=== PATIENT | male | born 1980 ===

== ENCOUNTER 2018-04-24 08:22 | Observation (INO) | payer OTHER ==
[2018-04-24 08:22] VITALS: BMI 35.4
[2018-04-24] MEDS ORDERED: Sodium Chloride 0.9% 1,000 ML IV ONE ×3 (08:38→15:34)
--- NOTE | 2018-04-24 09:13 | C.PDOC ---
History Of Present Illness 38 y/o male presents to the ER complaining of vomiting and diarrhea which has been present since yesterday. Patient states that he has cramping abdominal pain with diarrhea. Patient also notes that he has fever since yesterday. Denies having CP,SOB, and urinary symptoms. Time Seen by Provider: 04/24/18 08:24 Chief Complaint (Nursing): GI Problem History Per: Patient History/Exam Limitations: no limitations Onset/Duration Of Symptoms: Days Current Symptoms Are (Timing): Still Present Severity: Moderate Quality Of Discomfort: Cramping Recent travel outside of the [place]: No Past Medical History Reviewed: Historical Data, Nursing Documentation, Vital Signs Vital Signs: Last Vital Signs Temp 99.1 F 04/24/18 08:34 Pulse 110 H 04/24/18 08:34 Resp 20 04/24/18 08:39 BP 122/77 04/24/18 08:34 Pulse Ox 98 04/24/18 08:34 - Medical History PMH: No Chronic Diseases Surgical History: No Surg Hx Family History: States: No Known Family Hx - Social History Hx Alcohol Use: Yes Hx Substance Use: No - Immunization History Hx Tetanus Toxoid Vaccination: No Hx Influenza Vaccination: No Hx Pneumococcal Vaccination: No Review Of Systems Except As Marked, All Systems Reviewed And Found Negative. Constitutional: Positive for: Fever. Negative for: Chills Cardiovascular: Negative for: Chest Pain Respiratory: Negative for: Shortness of Breath Gastrointestinal: Positive for: Vomiting, Abdominal Pain, Diarrhea Genitourinary: Negative for: Dysuria, Hematuria Physical Exam - Physical Exam Appears: Non-toxic, No Acute Distress Skin: Normal Color, Warm, Dry Head: Atraumatic, Normacephalic Eye(s): bilateral: Normal Inspection Nose: Normal Oral Mucosa: Moist Throat: Normal, No Erythema, No Exudate Neck: Supple Chest: Symmetrical Cardiovascular: Rhythm Regular Respiratory: Normal Breath Sounds, No Rales, No Rhonchi, No Wheezing Gastrointestinal/Abdominal: Normal Exam, Soft, No Tenderness, No Guarding, No Rebound Extremity: Normal ROM Neurological/Psych: Oriented x3, Normal Speech Gait: Steady ED Course And Treatment - Laboratory Results Result Diagrams: 04/24/18 12:41 04/24/18 09:34 Lab Interpretation: No Acute Changes O2 Sat by Pulse Oximetry: 98 (RA) Pulse Ox Interpretation: Normal - Radiology CXR: Interpreted by Me CXR Interpretation: Yes: No Acute Disease - Other Rad CXR X-Ray: Viewed By Me, Read By Radiologist Interpretation: Accession No. : [id number]. Patient Name / ID : TADEO PURVIS / [id number]. Exam Date : 04/24/2018 13:39:50 ( Approved ). Study Comment : Sex / Age : M / 38Y. Creator : Bianka Thomas MD. Dictator : Bianka Thomas MD. Press Bucker : Venetian Blind Washer : Bianka Thomas MD. Approver2 : Report Date : 04/24/2018 14:20:35. My Comment : . Date of service: 04/24/2018. HISTORY: Cough. COMPARISON: 10/29/2017. TECHNIQUE: Chest PA and lateral. FINDINGS: LINES AND TUBES: None. LUNG AND PLEURA: The lungs are well inflated and clear. No pleural effusion or pneumothorax. HEART AND MEDIASTINUM: The heart is not enlarged. No aortic atherosclerotic calcifications present. The hilar and mediastinal contours are within normal limits. SKELETAL STRUCTURES: The bony structures are within normal limits for the patient's age. VISUALIZED UPPER ABDOMEN: Normal. OTHER FINDINGS: None. IMPRESSION: No active pulmonary disease. - CT Scan/US CT-Abd & Pelv. Other Rad Studies (CT/US): Read By Radiologist, Radiology Report Reviewed CT/US Interpretation: PROCEDURE: CT Abdomen and Pelvis without Oral or IV contrast. HISTORY: Pain. COMPARISON: None available. TECHNIQUE: Contiguous axial images of the abdomen and pelvis. No oral or IV contrast administered. Coronal and Sagittal reformats generated and reviewed. Radiation dose: Total exam DLP = 1194.31 mGy-cm. This CT exam was performed using one or more of the following dose reduction techniques: Automated exposure control, adjustment of the mA and/or kV according to patient size, and/or use of iterative reconstruction technique. FINDINGS: There is limited evaluation of the solid organs without the administration of IV contrast. LOWER THORAX: No visible consolidation, pleural effusion, or pneumothorax. Small hiatal hernia/distal esophageal wall thickening. LIVER: Hepatomegaly. Hypoattenuation of the liver compatible with hepatic steatosis. GALLBLADDER AND BILE DUCTS: Contracted state of gallbladder appears otherwise unremarkable. PANCREAS: Unremarkable unenhanced appearance. SPLEEN: Unremarkable unenhanced appearance. ADRENALS: Unremarkable unenhanced appearance. KIDNEYS AND URETERS: No hydronephrosis or obstructing renal calculus. BLADDER: The urinary bladder appears unremarkable. REPRODUCTIVE: The prostate gland measures approximately 3.5 x 4.7 cm. APPENDIX: The appendix appears within normal limits of caliber. No secondary signs of acute appendicitis. BOWEL: The stomach is nondistended. Lack of oral contrast limits evaluation for bowel pathology. The bowel loops appear within normal limits of caliber without evidence of intestinal obstruction. Small scattered bowel hyperdensities which may be due to ingested contrast from prior recent outside imaging; correlate clinically. PERITONEUM: No significant free fluid. No definite free air. LYMPH NODES: Extensive sub cm mesenteric and retroperitoneal lymph nodes, nonspecific.. VASCULATURE: No significant atherosclerotic calcification of the aorta. No aortic aneurysm. BONES: Degenerative changes. OTHER FINDINGS: Fat containing left inguinal hernia. IMPRESSION: Hepatomegaly. Hypoattenuation of the liver consistent with hepatic steatosis. Extensive sub cm mesenteric and retroperitoneal lymph nodes, nonspecific. Correlate clinically. Additional findings as above. Progress Note: Patient treated with IVF NSS x 2 liters. Treated with zofran and bentyl. On re-evaluation andomen soft , feeling better. On re-evaluation lungs clear. treated with additional NFF @ 100 ml/hr Reassessment Condition: Improved - Physician Consult Information Physician Contacted: Michael Chester Outcome Of Conversation: admit to OBS Medical Decision Making Medical Decision Making: Plan: --Labs --UA --Bentyl IM --Zofran IV --IV Fluids Disposition Discussed With : Michael Chester Doctor Will See Patient In The: Hospital Counseled Patient/Family Regarding: Studies Performed, Diagnosis, Need For Followup - Disposition Disposition: HOSPITALIZED Disposition Time: 13:00 Condition: STABLE - POA Present On Arrival: None - Clinical Impression Clinical Impression: Gastroenteritis - PA / NATIONAL BUSINESS DIRECTOR / Resident Statement MD/DO has reviewed & agrees with the documentation as recorded. - Scribe Statement The provider has reviewed the documentation as recorded by the Scribe Keisha Zamora Provider Attestation All medical record entries made by the Scribe were at my direction and personally dictated by me. I have reviewed the chart and agree that the record accurately reflects my personal performance of the history, physical exam, medical decision making, and the department course for this patient. I have also personally directed, reviewed, and agree with the discharge instructions and disposition.
[2018-04-24 09:44] LABS: BASO % 0.1 % (0.0-2.0); LYMPH # 0.5 K/uL (1.0-4.3); LYMPH % 5.2 % (20.0-40.0); MEAN CELL VOLUME 82.2 fL (80.0-94.0); MEAN CORPUSCULAR HEMOGLOBIN 26.6 pg (27.0-31.0); MEAN CORPUSCULAR HGB CONC 32.4 g/dL (33.0-37.0); MEAN PLATELET VOLUME 8.4 fL (7.2-11.7); MONO # 0.6 K/uL (0.0-0.8); MONO % 6.2 % (0.0-10.0); NEUT # 8.6 K/uL (1.8-7.0); NEUT % 88.5 % (50.0-75.0); PLATELET COUNT 320 K/uL (130-400); RED CELL DISTRIBUTION WIDTH 13.7 % (11.5-14.5); WHITE BLOOD COUNT 9.7 K/uL (4.8-10.8)
[2018-04-24 09:53] LABS: SQUAMOUS EPITHIAL < 1 /hpf (0-5); URINE BACTERIA RARE (<OCC); URINE BILIRUBIN NEGATIVE (NEGATIVE); URINE BLOOD 2+ (NEGATIVE); URINE CLARITY Hazy (Clear); URINE COLOR Yellow (YELLOW); URINE GLUCOSE (UA) NORMAL (Normal); URINE LEUKOCYTE ESTERASE 2+ Leu/uL (Negative); URINE PROTEIN 1+ mg/dL (NEGATIVE); URINE UROBILINOGEN NORMAL mg/dL (0.2-1.0)
[2018-04-24 09:54] LABS: ALB/GLOB RATIO 1.4 (1.0-2.1); ALT/SGPT 68 U/L (21-72); AST/SGOT 45 U/L (17-59); BLOOD UREA NITROGEN 17 mg/dL (9-20); CALCIUM 9.3 mg/dl (8.6-10.4); GFR NON-AFRICAN AMERICAN > 60
[2018-04-24 10:28] LABS: BANDS 21 % (0-2); LYMPHOCYTE 9 % (20-40); MONOCYTE 6 % (0-10); NEUTROPHIL 64 % (50-75); PLATELET ESTIMATE NORMAL (NORMAL); TOTAL CELLS COUNTED 100
[2018-04-24] MEDS ORDERED: Sodium Chloride 0.9% 1,000 ML ONE ×2 (10:39→15:44)
[2018-04-24 12:44] LABS: BASO % 0.2 % (0.0-2.0); EOS % 0.1 % (0.0-4.0); LYMPH # 0.6 K/uL (1.0-4.3); LYMPH % 8.7 % (20.0-40.0); MEAN CELL VOLUME 82.5 fL (80.0-94.0); MEAN CORPUSCULAR HEMOGLOBIN 27.2 pg (27.0-31.0); MEAN CORPUSCULAR HGB CONC 32.9 g/dL (33.0-37.0); MEAN PLATELET VOLUME 7.6 fL (7.2-11.7); MONO # 0.5 K/uL (0.0-0.8); MONO % 6.1 % (0.0-10.0); NEUT # 6.3 K/uL (1.8-7.0); NEUT % 84.9 % (50.0-75.0); PLATELET COUNT 268 K/uL (130-400); RBC 5.08 Mil/uL (4.40-5.90); RED CELL DISTRIBUTION WIDTH 13.7 % (11.5-14.5); WHITE BLOOD COUNT 7.5 K/uL (4.8-10.8)
[2018-04-24 12:48] LABS: HEMOGLOBIN 13.8 g/dL (12.0-18.0)
[2018-04-24 13:10] LABS: BANDS 22 % (0-2); BASOPHIL 1 % (0-2); LYMPHOCYTE 9 % (20-40); MONOCYTE 6 % (0-10); NEUTROPHIL 60 % (50-75); PLATELET ESTIMATE NORMAL (NORMAL); REACTIVE LYMPHOCYTES 2 % (0-0); TOTAL CELLS COUNTED 100
[2018-04-24 13:12] LABS: LARGE PLATELETS PRESENT
--- NOTE | 2018-04-24 14:24 | RAD ---
Date of service: 04/24/2018 HISTORY: Cough COMPARISON: 10/29/2017. TECHNIQUE: Chest PA and lateral FINDINGS: LINES AND TUBES: None. LUNG AND PLEURA: The lungs are well inflated and clear. No pleural effusion or pneumothorax. HEART AND MEDIASTINUM: The heart is not enlarged. No aortic atherosclerotic calcifications present. The hilar and mediastinal contours are within normal limits. SKELETAL STRUCTURES: The bony structures are within normal limits for the patient's age. VISUALIZED UPPER ABDOMEN: Normal. OTHER FINDINGS: None. IMPRESSION: No active pulmonary disease.
--- NOTE | 2018-04-24 14:47 | CT ---
PROCEDURE: CT Abdomen and Pelvis without Oral or IV contrast. HISTORY: Pain COMPARISON: None available. TECHNIQUE: Contiguous axial images of the abdomen and pelvis. No oral or IV contrast administered. Coronal and Sagittal reformats generated and reviewed. Radiation dose: Total exam DLP = 1194.31 mGy-cm. This CT exam was performed using one or more of the following dose reduction techniques: Automated exposure control, adjustment of the mA and/or kV according to patient size, and/or use of iterative reconstruction technique. FINDINGS: There is limited evaluation of the solid organs without the administration of IV contrast. LOWER THORAX: No visible consolidation, pleural effusion, or pneumothorax. Small hiatal hernia/distal esophageal wall thickening. LIVER: Hepatomegaly. Hypoattenuation of the liver compatible with hepatic steatosis. GALLBLADDER AND BILE DUCTS: Contracted state of gallbladder appears otherwise unremarkable. PANCREAS: Unremarkable unenhanced appearance. SPLEEN: Unremarkable unenhanced appearance. ADRENALS: Unremarkable unenhanced appearance. KIDNEYS AND URETERS: No hydronephrosis or obstructing renal calculus. BLADDER: The urinary bladder appears unremarkable. REPRODUCTIVE: The prostate gland measures approximately 3.5 x 4.7 cm. APPENDIX: The appendix appears within normal limits of caliber. No secondary signs of acute appendicitis. BOWEL: The stomach is nondistended. Lack of oral contrast limits evaluation for bowel pathology. The bowel loops appear within normal limits of caliber without evidence of intestinal obstruction. Small scattered bowel hyperdensities which may be due to ingested contrast from prior recent outside imaging; correlate clinically. PERITONEUM: No significant free fluid. No definite free air. LYMPH NODES: Extensive sub cm mesenteric and retroperitoneal lymph nodes, nonspecific.. VASCULATURE: No significant atherosclerotic calcification of the aorta. No aortic aneurysm. BONES: Degenerative changes. OTHER FINDINGS: Fat containing left inguinal hernia. IMPRESSION: Hepatomegaly. Hypoattenuation of the liver consistent with hepatic steatosis. Extensive sub cm mesenteric and retroperitoneal lymph nodes, nonspecific. Correlate clinically. Additional findings as above.
--- NOTE | 2018-04-24 15:56 | CP.PCM.HP ---
<WestonMckenzie - Last Filed: 04/24/18 16:21> History of Present Illness - History of Present Illness History of Present Illness: PGY1 Medicine H+P for Dr. Chester Patient is a 38 year old male with no significant past medical history is presenting to the hospital today complaining of vomiting and diarrhea since yesterday. He is complaining of abdominal pain which is cramping in nature. Patient is also experiencing subjective fevers and has a tmax of 99.6F while in the emergency room. He reported taking pepto bismol at home. He denies eating outside food. He reports yellow watery diarrhea, transitioning into black. He reports the last episode of diarrhea was 2 hours prior and last episode of vomiting was 4am this morning. Patient denies chest pain, shortness of breath, c ough, urinary symptoms, numbness, tingling, recent travel or sick contacts. PMH: denies SxH: denies SocH: denies etoh, recreational drug, or tobacco use Meds: denies Allergies: NKDA PMD: Valentin Present on Admission - Present on Admission Any Indicators Present on Admission: No Review of Systems - Constitutional Constitutional: absent: Headache - EENT Eyes: absent: Blurred Vision, Change in Vision - Cardiovascular Cardiovascular: absent: Chest Pain, Dyspnea - Respiratory Respiratory: absent: Cough - Gastrointestinal Gastrointestinal: Diarrhea, Nausea, Vomiting. absent: Melena - Genitourinary Genitourinary: absent: Dysuria - Musculoskeletal Musculoskeletal: absent: Numbness, Tingling - Integumentary Integumentary: absent: Rash - Neurological Neurological: absent: Dizziness, Weakness - Psychiatric Psychiatric: absent: Anxiety - Endocrine Endocrine: absent: Fatigue, Palpitations Past Patient History - Infectious Disease Hx of Infectious Diseases: None - Past Social History Smoking Status: Never Smoked - PSYCHIATRIC Hx Substance Use: No - SURGICAL HISTORY Hx Surgeries: No - ANESTHESIA Hx Anesthesia: No Meds Allergies/Adverse Reactions: Allergies Allergy/AdvReac Type Severity Reaction Status Date / Time No Known Allergies Allergy Verified 10/29/17 19:28 Physical Exam - Constitutional Appears: Well, No Acute Distress - Head Exam Head Exam: ATRAUMATIC, NORMOCEPHALIC - Eye Exam Eye Exam: EOMI, Normal appearance Pupil Exam: NORMAL ACCOMODATION - ENT Exam ENT Exam: Mucous Membranes Moist - Respiratory Exam Respiratory Exam: Clear to Auscultation Bilateral, NORMAL BREATHING PATTERN. absent: Rales, Rhonchi, Wheezes - Cardiovascular Exam Cardiovascular Exam: REGULAR RHYTHM, +S1, +S2. absent: Gallop, Rubs, Systolic Murmur - GI/Abdominal Exam GI & Abdominal Exam: Normal Bowel Sounds, Soft. absent: Distended, Tenderness - Extremities Exam Extremities exam: Positive for: normal inspection. Negative for: pedal edema - Back Exam Back exam: absent: paraspinal tenderness - Neurological Exam Neurological exam: Alert, CN II-XII Intact, Oriented x3 - Psychiatric Exam Psychiatric exam: Normal Affect, Normal Mood - Skin Skin Exam: Warm Results - Vital Signs Recent Vital Signs: Last Vital Signs Temp 99.6 F 04/24/18 15:26 Pulse 81 04/24/18 15:26 Resp 18 04/24/18 15:26 BP 127/72 04/24/18 15:26 Pulse Ox 98 04/24/18 15:40 - Labs Result Diagrams: 04/24/18 12:41 04/24/18 09:34 Labs: Laboratory Results - last 24 hr 04/24/18 04/24/18 04/24/18 09:34 09:34 09:34 WBC 9.7 RBC 6.00 H Hgb 16.0 D Hct 49.3 MCV 82.2 MCH 26.6 L MCHC 32.4 L RDW 13.7 Plt Count 320 MPV 8.4 Neut % (Auto) 88.5 H Lymph % (Auto) 5.2 L [place] % (Auto) 6.2 Eos % (Auto) 0.0 Baso % (Auto) 0.1 Neut # (Auto) 8.6 H Lymph # (Auto) 0.5 L [place] # (Auto) 0.6 Eos # (Auto) 0.0 Baso # (Auto) 0.0 Neutrophils % (Manual) 64 Band Neutrophils % 21 H* Lymphocytes % (Manual) 9 L Reactive Lymphs % Monocytes % (Manual) 6 Basophils % (Manual) Platelet Estimate Normal Large Platelets RBC Morphology Normal Sodium 137 Potassium 4.0 Chloride 103 Carbon Dioxide 19 L Anion Gap 18 BUN 17 Creatinine 0.9 Est GFR ( Amer) > 60 Est GFR (Non-Af Amer) > 60 Random Glucose 124 H D Lactic Acid Calcium 9.3 Total Bilirubin 0.9 AST 45 ALT 68 Alkaline Phosphatase 107 Total Protein 8.7 H Albumin 5.0 D Globulin 3.7 Albumin/Globulin Ratio 1.4 Urine Color Yellow Urine Clarity Hazy Urine pH 5.0 Ur Specific [place] 1.033 H Urine Protein 1+ H Urine Glucose (UA) Normal Urine Ketones Negative Urine Blood 2+ H Urine Nitrate Negative Urine Bilirubin Negative Urine Urobilinogen Normal Ur Leukocyte Esterase 2+ H Urine WBC (Auto) 1 Urine RBC (Auto) 11 H Ur Squamous Epith Cells < 1 Urine Bacteria Rare Influenza Typ A,B (EIA) 04/24/18 04/24/18 04/24/18 12:41 14:13 14:13 WBC 7.5 RBC 5.08 Hgb 13.8 D Hct 41.9 MCV 82.5 MCH 27.2 MCHC 32.9 L RDW 13.7 Plt Count 268 MPV 7.6 Neut % (Auto) 84.9 H Lymph % (Auto) 8.7 L [place] % (Auto) 6.1 Eos % (Auto) 0.1 Baso % (Auto) 0.2 Neut # (Auto) 6.3 Lymph # (Auto) 0.6 L [place] # (Auto) 0.5 Eos # (Auto) 0.0 Baso # (Auto) 0.0 Neutrophils % (Manual) 60 Band Neutrophils % 22 H* Lymphocytes % (Manual) 9 L Reactive Lymphs % 2 H Monocytes % (Manual) 6 Basophils % (Manual) 1 Platelet Estimate Normal Large Platelets Present RBC Morphology Normal Sodium Potassium Chloride Carbon Dioxide Anion Gap BUN Creatinine Est GFR ( Amer) Est GFR (Non-Af Amer) Random Glucose Lactic Acid 1.0 Calcium Total Bilirubin AST ALT Alkaline Phosphatase Total Protein Albumin Globulin Albumin/Globulin Ratio Urine Color Urine Clarity Urine pH Ur Specific [place] Urine Protein Urine Glucose (UA) Urine Ketones Urine Blood Urine Nitrate Urine Bilirubin Urine Urobilinogen Ur Leukocyte Esterase Urine WBC (Auto) Urine RBC (Auto) Ur Squamous Epith Cells Urine Bacteria Influenza Typ A,B (EIA) Negative for flu a/b Assessment & Plan - Assessment and Plan (Free Text) Assessment: 38 yo M no PMH presenting with vomiting and diarrhea x1 day, admitted for bands. Observation. Plan: Gastroenteritis - resolved symptoms - afebrile, no leukocytosis - bandemia - left shift - CT abd/pel: hepatomegaly. hepatic steatosis. Extensive sub cm mesenteric and retroperitoneal lymph nodes, nonspecific. Correlate clinically - CXR: no active pulmonary disease - flu negative - Rocephin 1g IV q12h - NS@120 cc/hr - Tylenol PRN pain - Zofran PRN nausea - f/u HIV, hep panel - f/u C.diff, fecal leukocytes, O&P - f/u BCx - f/u UCx PPX DVT - SCDs GI - protonix Regular diet Patient seen and case discussed with Dr. Chester <Michael Chester H - Last Filed: 04/24/18 18:08> Results - Vital Signs Recent Vital Signs: Last Vital Signs Temp 98.9 F 04/24/18 17:44 Pulse 76 04/24/18 17:44 Resp 20 04/24/18 17:44 BP 112/66 04/24/18 17:44 Pulse Ox 95 04/24/18 17:58 - Labs Result Diagrams: 04/24/18 12:41 04/24/18 09:34 Labs: Laboratory Results - last 24 hr 04/24/18 04/24/18 04/24/18 09:34 09:34 09:34 WBC 9.7 RBC 6.00 H Hgb 16.0 D Hct 49.3 MCV 82.2 MCH 26.6 L MCHC 32.4 L RDW 13.7 Plt Count 320 MPV 8.4 Neut % (Auto) 88.5 H Lymph % (Auto) 5.2 L [place] % (Auto) 6.2 Eos % (Auto) 0.0 Baso % (Auto) 0.1 Neut # (Auto) 8.6 H Lymph # (Auto) 0.5 L [place] # (Auto) 0.6 Eos # (Auto) 0.0 Baso # (Auto) 0.0 Neutrophils % (Manual) 64 Band Neutrophils % 21 H* Lymphocytes % (Manual) 9 L Reactive Lymphs % Monocytes % (Manual) 6 Basophils % (Manual) Platelet Estimate Normal Large Platelets RBC Morphology Normal Sodium 137 Potassium 4.0 Chloride 103 Carbon Dioxide 19 L Anion Gap 18 BUN 17 Creatinine 0.9 Est GFR ( Amer) > 60 Est GFR (Non-Af Amer) > 60 Random Glucose 124 H D Lactic Acid Calcium 9.3 Total Bilirubin 0.9 AST 45 ALT 68 Alkaline Phosphatase 107 Total Protein 8.7 H Albumin 5.0 D Globulin 3.7 Albumin/Globulin Ratio 1.4 Urine Color Yellow Urine Clarity Hazy Urine pH 5.0 Ur Specific [place] 1.033 H Urine Protein 1+ H Urine Glucose (UA) Normal Urine Ketones Negative Urine Blood 2+ H Urine Nitrate Negative Urine Bilirubin Negative Urine Urobilinogen Normal Ur Leukocyte Esterase 2+ H Urine WBC (Auto) 1 Urine RBC (Auto) 11 H Ur Squamous Epith Cells < 1 Urine Bacteria Rare Influenza Typ A,B (EIA) 04/24/18 04/24/18 04/24/18 12:41 14:13 14:13 WBC 7.5 RBC 5.08 Hgb 13.8 D Hct 41.9 MCV 82.5 MCH 27.2 MCHC 32.9 L RDW 13.7 Plt Count 268 MPV 7.6 Neut % (Auto) 84.9 H Lymph % (Auto) 8.7 L [place] % (Auto) 6.1 Eos % (Auto) 0.1 Baso % (Auto) 0.2 Neut # (Auto) 6.3 Lymph # (Auto) 0.6 L [place] # (Auto) 0.5 Eos # (Auto) 0.0 Baso # (Auto) 0.0 Neutrophils % (Manual) 60 Band Neutrophils % 22 H* Lymphocytes % (Manual) 9 L Reactive Lymphs % 2 H Monocytes % (Manual) 6 Basophils % (Manual) 1 Platelet Estimate Normal Large Platelets Present RBC Morphology Normal Sodium Potassium Chloride Carbon Dioxide Anion Gap BUN Creatinine Est GFR ( Amer) Est GFR (Non-Af Amer) Random Glucose Lactic Acid 1.0 Calcium Total Bilirubin AST ALT Alkaline Phosphatase Total Protein Albumin Globulin Albumin/Globulin Ratio Urine Color Urine Clarity Urine pH Ur Specific [place] Urine Protein Urine Glucose (UA) Urine Ketones Urine Blood Urine Nitrate Urine Bilirubin Urine Urobilinogen Ur Leukocyte Esterase Urine WBC (Auto) Urine RBC (Auto) Ur Squamous Epith Cells Urine Bacteria Influenza Typ A,B (EIA) Negative for flu a/b Attending/Attestation - Attestation I have personally seen and examined this patient.: Yes I have fully participated in the care of the patient.: Yes I have reviewed all pertinent clinical information: Yes Notes (Text): 04/24/18 18:03 Medical attending: Patient was seen and examined by me with the medical representative, reviewed the above note by the resident and agree with the above The patient underwent a CT of the abdomen and pelvis and this did not show acute findings. The vomiting and the diarrhea has subsided he said He does not think he ate any food that was bad Also he reports no sick family members or sick close friends Concerning was the labwork which showed his has a high bandemia count of 21 It maybe that this is a viral gastroeneteritis or food poisoning that will pass with supportive measures However the banedmia count of 21. Rocephin IV BID for the time being Also check stool culture, stool WBC, stool OP and stool C diff He will also have hepatitis check in case there was some sort of fecal/oral situation - though he isn't jaundice on exam and LFTs ok Also check for HIV in case this is an early presentation Michael Chester
[2018-04-24 17:22] VITALS: RESP 20
[2018-04-24] MEDS: Sodium Chloride 0.9% 1,000 ML IV SCH (19:25)
[2018-04-24 21:32] LABS: HEPATITIS B SURFACE AG Negative (NEGATIVE)
[2018-04-24 21:38] LABS: HEPATITIS A IGM NEGATIVE (NEGATIVE); HEPATITIS B CORE AB NEGATIVE (NEGATIVE)
[2018-04-24 21:49] LABS: HEPATITIS C ANTIBODY NEGATIVE (NEGATIVE)
[2018-04-24 22:00] LABS: C DIFF TOXIN A B NEGATIVE (NEGATIVE)
[2018-04-24 22:10] LABS: FECAL LEUKOCYTES NEGATIVE (NEGATIVE)
[2018-04-25] MEDS: Sodium Chloride 0.9% 1,000 ML IV SCH ×3 (00:50→09:10)
[2018-04-25] MEDS ORDERED: Sodium Chloride 0.9% 1,000 ML IV SCH (01:30)
[2018-04-25 06:20] LABS: BASO % 0.3 % (0.0-2.0); EOS % 0.7 % (0.0-4.0); HEMOGLOBIN 13.7 g/dL (12.0-18.0); LYMPH # 1.3 K/uL (1.0-4.3); LYMPH % 24.5 % (20.0-40.0); MEAN CELL VOLUME 83.2 fL (80.0-94.0); MEAN CORPUSCULAR HEMOGLOBIN 27.7 pg (27.0-31.0); MEAN CORPUSCULAR HGB CONC 33.3 g/dL (33.0-37.0); MEAN PLATELET VOLUME 7.7 fL (7.2-11.7); MONO # 0.6 K/uL (0.0-0.8); MONO % 11.5 % (0.0-10.0); NEUT # 3.4 K/uL (1.8-7.0); RBC 4.94 Mil/uL (4.40-5.90); WHITE BLOOD COUNT 5.4 K/uL (4.8-10.8)
[2018-04-25 07:18] LABS: ALBUMIN 3.5 g/dL (3.5-5.0); BLOOD UREA NITROGEN 10 mg/dL (9-20); GFR NON-AFRICAN AMERICAN > 60
[2018-04-25 07:19] LABS: ALB/GLOB RATIO 1.3 (1.0-2.1); ALT/SGPT 55 U/L (21-72); AST/SGOT 42 U/L (17-59)
[2018-04-25 08:17] VITALS: BP 102/62; PULSE 63; TEMP 98.2; O2SAT 97
--- NOTE | 2018-04-25 09:06 | CP.PCM.PN ---
Objective - Vital Signs/Intake and Output Vital Signs (last 24 hours): Temp Pulse Resp BP Pulse Ox 98.2 F 63 20 102/62 97 04/25/18 08:15 04/25/18 08:15 04/25/18 08:15 04/25/18 08:15 04/25/18 08:15 Intake and Output: 04/25/18 04/25/18 06:59 18:59 Intake Total 1920 Balance 1920 - Medications Medications: Current Medications Acetaminophen (Tylenol 325mg Tab) 650 mg PO Q6 PRN PRN Reason: fever >100.4F Sodium Chloride (Sodium Chloride 0.9%) 1,000 mls @ 120 mls/hr IV .Q8H20M PANFILO Last Admin: 04/25/18 04:18 Dose: 120 mls/hr Ceftriaxone Sodium 1 gm/ (Sodium Chloride) 100 mls @ 100 mls/hr IVPB Q12H PANFILO; Protocol Last Admin: 04/25/18 04:18 Dose: 100 mls/hr Influenza Virus Vaccine (Flucelvax Quad 3226-8861 Syr) 60 mcg IM .ONCE ONE Stop: 04/26/18 12:01 Ondansetron HCl (Zofran Inj) 4 mg IVP Q6 PRN PRN Reason: Nausea/Vomiting Pantoprazole Sodium (Protonix Ec Tab) 40 mg PO DAILY [facility] Pneumococcal Polyvalent Vaccine (Pneumovax 23 Vaccine) 0.5 ml IM .ONCE ONE Stop: 04/26/18 10:01 - Labs Labs: 04/25/18 06:15 04/25/18 06:15
[2018-04-25] MEDS ORDERED: Pantoprazole 40 mg EC Tab PO SCH (10:00)
--- NOTE | 2018-04-25 10:46 | CP.PCM.DIS ---
<Edvin Whipple - Last Filed: 04/25/18 16:57> Provider - Provider Date of Admission: 04/24/18 15:32 Attending physician: Michael Chester DO Time Spent in preparation of Discharge (in minutes): 180 Diagnosis - Discharge Diagnosis (1) Gastroenteritis Status: Acute Hospital Course - Lab Results Lab Results: Most Recent Lab Values WBC 5.4 K/uL (4.8-10.8) 04/25/18 06:15 RBC 4.94 Mil/uL (4.40-5.90) 04/25/18 06:15 Hgb 13.7 g/dL (12.0-18.0) 04/25/18 06:15 Hct 41.1 % (35.0-51.0) 04/25/18 06:15 MCV 83.2 fL (80.0-94.0) 04/25/18 06:15 MCH 27.7 pg (27.0-31.0) 04/25/18 06:15 MCHC 33.3 g/dL (33.0-37.0) 04/25/18 06:15 RDW 14.0 % (11.5-14.5) 04/25/18 06:15 Plt Count 240 K/uL (130-400) 04/25/18 06:15 MPV 7.7 fL (7.2-11.7) 04/25/18 06:15 Neut % (Auto) 63.0 % (50.0-75.0) 04/25/18 06:15 Lymph % (Auto) 24.5 % (20.0-40.0) 04/25/18 06:15 Am[place] % (Auto) 11.5 % (0.0-10.0) H 04/25/18 06:15 Eos % (Auto) 0.7 % (0.0-4.0) 04/25/18 06:15 Baso % (Auto) 0.3 % (0.0-2.0) 04/25/18 06:15 Neut # (Auto) 3.4 K/uL (1.8-7.0) 04/25/18 06:15 Lymph # (Auto) 1.3 K/uL (1.0-4.3) 04/25/18 06:15 Amador # (Auto) 0.6 K/uL (0.0-0.8) 04/25/18 06:15 Eos # (Auto) 0.0 K/uL (0.0-0.7) 04/25/18 06:15 Baso # (Auto) 0.0 K/uL (0.0-0.2) 04/25/18 06:15 Neutrophils % (Manual) 60 % (50-75) 04/24/18 12:41 Band Neutrophils % 22 % (0-2) H* 04/24/18 12:41 Lymphocytes % (Manual) 9 % (20-40) L 04/24/18 12:41 Reactive Lymphs % 2 % (0-0) H 04/24/18 12:41 Monocytes % (Manual) 6 % (0-10) 04/24/18 12:41 Basophils % (Manual) 1 % (0-2) 04/24/18 12:41 Platelet Estimate Normal (NORMAL) 04/24/18 12:41 Large Platelets Present 04/24/18 12:41 RBC Morphology Normal 04/24/18 12:41 Sodium 136 mmol/L (132-148) 04/25/18 06:15 Potassium 3.7 mmol/L (3.6-5.2) 04/25/18 06:15 Chloride 105 mmol/L (98-107) 04/25/18 06:15 Carbon Dioxide 26 mmol/L (22-30) 04/25/18 06:15 Anion Gap 9 (10-20) L 04/25/18 06:15 BUN 10 mg/dL (9-20) 04/25/18 06:15 Creatinine 0.8 mg/dL (0.8-1.5) 04/25/18 06:15 Est GFR ( Amer) > 60 04/25/18 06:15 Est GFR (Non-Af Amer) > 60 04/25/18 06:15 Random Glucose 90 mg/dL (75-110) D 04/25/18 06:15 Lactic Acid 1.0 mmol/L (0.7-2.1) 04/24/18 14:13 Calcium 8.0 mg/dl (8.6-10.4) L 04/25/18 06:15 Phosphorus 2.3 mg/dL (2.5-4.5) L 04/25/18 06:15 Magnesium 1.8 mg/dL (1.6-2.3) 04/25/18 06:15 Total Bilirubin 0.3 mg/dL (0.2-1.3) 04/25/18 06:15 AST 42 U/L (17-59) 04/25/18 06:15 ALT 55 U/L (21-72) 04/25/18 06:15 Alkaline Phosphatase 66 U/L (38-126) 04/25/18 06:15 Total Protein 6.2 g/dL (6.3-8.3) L 04/25/18 06:15 Albumin 3.5 g/dL (3.5-5.0) D 04/25/18 06:15 Globulin 2.7 gm/dL (2.2-3.9) 04/25/18 06:15 Albumin/Globulin Ratio 1.3 (1.0-2.1) 04/25/18 06:15 Urine Color Yellow (YELLOW) 04/24/18 09:34 Urine Clarity Hazy (Clear) 04/24/18 09:34 Urine pH 5.0 (5.0-8.0) 04/24/18 09:34 Ur Specific [place] 1.033 (1.003-1.030) H 04/24/18 09:34 Urine Protein 1+ mg/dL (NEGATIVE) H 04/24/18 09:34 Urine Glucose (UA) Normal mg/dL (Normal) 04/24/18 09:34 Urine Ketones Negative mg/dL (NEGATIVE) 04/24/18 09:34 Urine Blood 2+ (NEGATIVE) H 04/24/18 09:34 Urine Nitrate Negative (NEGATIVE) 04/24/18 09:34 Urine Bilirubin Negative (NEGATIVE) 04/24/18 09:34 Urine Urobilinogen Normal mg/dL (0.2-1.0) 04/24/18 09:34 Ur Leukocyte Esterase 2+ Trell/uL (Negative) H 04/24/18 09:34 Urine WBC (Auto) 1 /hpf (0-5) 04/24/18 09:34 Urine RBC (Auto) 11 /hpf (0-3) H 04/24/18 09:34 Ur Squamous Epith Cells < 1 /hpf (0-5) 04/24/18 09:34 Urine Bacteria Rare (<OCC) 04/24/18 09:34 Stool Leukocytes, Qual Negative (NEGATIVE) 04/24/18 20:33 C. difficile Ag & Toxin Negative (NEGATIVE) 04/24/18 20:33 Hepatitis A IgM Ab Negative (NEGATIVE) 04/24/18 20:43 Hep Bs Antigen Negative (NEGATIVE) 04/24/18 20:43 Hep B Core IgM Ab Negative (NEGATIVE) 04/24/18 20:43 Hepatitis C Antibody Negative (NEGATIVE) 04/24/18 20:43 HIV 1&2 Antibody Screen Negative (NEGATIVE) 04/24/18 20:43 Influenza Typ A,B (EIA) Negative for flu a/b (NEGATIVE) 04/24/18 14:13 - Hospital Course Hospital Course: On admission: Patient is a 38 year old male with no significant past medical history is presenting to the hospital today complaining of vomiting and diarrhea since yesterday. He is complaining of abdominal pain which is cramping in nature. Patient is also experiencing subjective fevers and has a tmax of 99.6F while in the emergency room. He reported taking pepto bismol at home. He denies eating outside food. He reports yellow watery diarrhea, transitioning into black. He reports the last episode of diarrhea was 2 hours prior and last episode of vomiting was 4am this morning. Patient denies chest pain, shortness of breath, cough, urinary symptoms, numbness, tingling, recent travel or sick contacts. On Hospitalization: Patient admitted with symptoms of Gastroenteritis with concerning blood work. At admission, patient CBC was noted to have bandemia of 21 with left shift, with repeat bandemia of 22, with no leukocytosis, negative lactic acid. CT Abd/pelvis show hepatomegaly. hepatic steatosis. Extensive sub cm mesenteric and retroperitoneal lymph nodes, nonspecific. Cxray shows no active pulmonary disease. influenza test, c.diff negative. Stool leukocytosis negative. HIV and hep C panel negative. Blood cultures, urine culutre and stool Ova and parasite negative. Rocephin started 04/24/2018. Fluids given. Tylenol and Zofran PRN for pain and nausea, respectively. Repeat CBC the morning of discharge shows no bandemia with rest of CBC within normal lipids, afebrile. Other labs unremarkable. Patient showing improvement of symptoms, with no abdominal pain, or vomiting this am, and 1 episode of nonbloody diarrhea. On discharge: The following instruction were given to patient upon discharge: Patient stable for discharge as per Dr Chester, Follow up with your PMD for further evaluation of diarrhea and gastric symptoms, Continue fluids and soft diet as tolerated. Return to ED if any increase and/or worsening of symptoms This is a short summary of patient's course of hospitalization. For more information, please refer to EMR. - Date & Time of H&P Date of H&P: 04/24/18 Time of H&P: 15:45 Discharge Exam - Head Exam Head Exam: ATRAUMATIC, NORMOCEPHALIC - Eye Exam Eye Exam: EOMI, Normal appearance - ENT Exam ENT Exam: Mucous Membranes Moist, Normal Exam - Respiratory Exam Respiratory Exam: Clear to PA & Lateral, NORMAL BREATHING PATTERN, UNREMARKABLE. absent: Rhonchi, Wheezes, Respiratory Distress - Cardiovascular Exam Cardiovascular Exam: REGULAR RHYTHM, +S1, +S2 - GI/Abdominal Exam GI & Abdominal Exam: Normal Bowel Sounds, Soft, Unremarkable. absent: Tenderness - Extremities Exam Extremities exam: full ROM, normal inspection - Back Exam Back exam: NORMAL INSPECTION - Neurological Exam Neurological exam: Alert, Oriented x3 - Psychiatric Exam Psychiatric exam: Normal Affect, Normal Mood - Skin Skin Exam: Dry, Intact, Normal Color, Warm Discharge Plan - Follow Up Plan Condition: STABLE Disposition: HOME/ ROUTINE Instructions: Viral Gastroenteritis, Soft Diet Additional Instructions: Patient stable for discharge as per Dr Chester Follow up with your PMD for further evaluation of diarrhea and gastric symptoms Continue fluids and soft diet as tolerated. Return to ED if any increase and/or worsening of symptoms Referrals: [facility] [Outside] [facility] [Outside] <Michael Chester - Last Filed: 04/25/18 18:10> Provider - Provider Date of Admission: 04/24/18 15:32 Attending physician: Michael Chester, Hospital Course - Lab Results Lab Results: Micro Results 04/24/18 14:30 Blood Blood Culture - Preliminary NO GROWTH AFTER 24 HOURS 04/24/18 14:42 Blood Blood Culture - Preliminary NO GROWTH AFTER 24 HOURS 04/24/18 20:17 Stool Ova and Parasite Concentrate Exam - Final 04/24/18 13:31 Urine Random Urine Culture - Final No Growth (<1,000 CFU/ML) Most Recent Lab Values WBC 5.4 K/uL (4.8-10.8) 04/25/18 06:15 RBC 4.94 Mil/uL (4.40-5.90) 04/25/18 06:15 Hgb 13.7 g/dL (12.0-18.0) 04/25/18 06:15 Hct 41.1 % (35.0-51.0) 04/25/18 06:15 MCV 83.2 fL (80.0-94.0) 04/25/18 06:15 MCH 27.7 pg (27.0-31.0) 04/25/18 06:15 MCHC 33.3 g/dL (33.0-37.0) 04/25/18 06:15 RDW 14.0 % (11.5-14.5) 04/25/18 06:15 Plt Count 240 K/uL (130-400) 04/25/18 06:15 MPV 7.7 fL (7.2-11.7) 04/25/18 06:15 Neut % (Auto) 63.0 % (50.0-75.0) 04/25/18 06:15 Lymph % (Auto) 24.5 % (20.0-40.0) 04/25/18 06:15 Amador % (Auto) 11.5 % (0.0-10.0) H 04/25/18 06:15 Eos % (Auto) 0.7 % (0.0-4.0) 04/25/18 06:15 Baso % (Auto) 0.3 % (0.0-2.0) 04/25/18 06:15 Neut # (Auto) 3.4 K/uL (1.8-7.0) 04/25/18 06:15 Lymph # (Auto) 1.3 K/uL (1.0-4.3) 04/25/18 06:15 Am[place] # (Auto) 0.6 K/uL (0.0-0.8) 04/25/18 06:15 Eos # (Auto) 0.0 K/uL (0.0-0.7) 04/25/18 06:15 Baso # (Auto) 0.0 K/uL (0.0-0.2) 04/25/18 06:15 Neutrophils % (Manual) 60 % (50-75) 04/24/18 12:41 Band Neutrophils % 22 % (0-2) H* 04/24/18 12:41 Lymphocytes % (Manual) 9 % (20-40) L 04/24/18 12:41 Reactive Lymphs % 2 % (0-0) H 04/24/18 12:41 Monocytes % (Manual) 6 % (0-10) 04/24/18 12:41 Basophils % (Manual) 1 % (0-2) 04/24/18 12:41 Platelet Estimate Normal (NORMAL) 04/24/18 12:41 Large Platelets Present 04/24/18 12:41 RBC Morphology Normal 04/24/18 12:41 Sodium 136 mmol/L (132-148) 04/25/18 06:15 Potassium 3.7 mmol/L (3.6-5.2) 04/25/18 06:15 Chloride 105 mmol/L (98-107) 04/25/18 06:15 Carbon Dioxide 26 mmol/L (22-30) 04/25/18 06:15 Anion Gap 9 (10-20) L 04/25/18 06:15 BUN 10 mg/dL (9-20) 04/25/18 06:15 Creatinine 0.8 mg/dL (0.8-1.5) 04/25/18 06:15 Est GFR ( Amer) > 60 04/25/18 06:15 Est GFR (Non-Af Amer) > 60 04/25/18 06:15 Random Glucose 90 mg/dL (75-110) D 04/25/18 06:15 Lactic Acid 1.0 mmol/L (0.7-2.1) 04/24/18 14:13 Calcium 8.0 mg/dl (8.6-10.4) L 04/25/18 06:15 Phosphorus 2.3 mg/dL (2.5-4.5) L 04/25/18 06:15 Magnesium 1.8 mg/dL (1.6-2.3) 04/25/18 06:15 Total Bilirubin 0.3 mg/dL (0.2-1.3) 04/25/18 06:15 AST 42 U/L (17-59) 04/25/18 06:15 ALT 55 U/L (21-72) 04/25/18 06:15 Alkaline Phosphatase 66 U/L (38-126) 04/25/18 06:15 Total Protein 6.2 g/dL (6.3-8.3) L 04/25/18 06:15 Albumin 3.5 g/dL (3.5-5.0) D 04/25/18 06:15 Globulin 2.7 gm/dL (2.2-3.9) 04/25/18 06:15 Albumin/Globulin Ratio 1.3 (1.0-2.1) 04/25/18 06:15 Urine Color Yellow (YELLOW) 04/24/18 09:34 Urine Clarity Hazy (Clear) 04/24/18 09:34 Urine pH 5.0 (5.0-8.0) 04/24/18 09:34 Ur Specific [place] 1.033 (1.003-1.030) H 04/24/18 09:34 Urine Protein 1+ mg/dL (NEGATIVE) H 04/24/18 09:34 Urine Glucose (UA) Normal mg/dL (Normal) 04/24/18 09:34 Urine Ketones Negative mg/dL (NEGATIVE) 04/24/18 09:34 Urine Blood 2+ (NEGATIVE) H 04/24/18 09:34 Urine Nitrate Negative (NEGATIVE) 04/24/18 09:34 Urine Bilirubin Negative (NEGATIVE) 04/24/18 09:34 Urine Urobilinogen Normal mg/dL (0.2-1.0) 04/24/18 09:34 Ur Leukocyte Esterase 2+ Trell/uL (Negative) H 04/24/18 09:34 Urine WBC (Auto) 1 /hpf (0-5) 04/24/18 09:34 Urine RBC (Auto) 11 /hpf (0-3) H 04/24/18 09:34 Ur Squamous Epith Cells < 1 /hpf (0-5) 04/24/18 09:34 Urine Bacteria Rare (<OCC) 04/24/18 09:34 Stool Leukocytes, Qual Negative (NEGATIVE) 04/24/18 20:33 C. difficile Ag & Toxin Negative (NEGATIVE) 04/24/18 20:33 Hepatitis A IgM Ab Negative (NEGATIVE) 04/24/18 20:43 Hep Bs Antigen Negative (NEGATIVE) 04/24/18 20:43 Hep B Core IgM Ab Negative (NEGATIVE) 04/24/18 20:43 Hepatitis C Antibody Negative (NEGATIVE) 04/24/18 20:43 HIV 1&2 Antibody Screen Negative (NEGATIVE) 04/24/18 20:43 Influenza Typ A,B (EIA) Negative for flu a/b (NEGATIVE) 04/24/18 14:13 Attending/Attestation - Attestation I have personally seen and examined this patient.: Yes I have fully participated in the care of the patient.: Yes I have reviewed all pertinent clinical information, including history, physical exam and plan: Yes Notes (Text): Medical attending: Patient was seen and examined by me. Agree with the above note by the resident The patient was not in any acute distress when I came and saw the patient He was tolerating his diet Denied fever, denied abdominal pain, he had very little diarrhea he reported in the morning The patient yesterday had bandemia of 21% - and today the CBC looks fine. HIV negative, Hepatitis negative Will discharge today, we advised him to take extrafluid Michael Chester
[2018-04-25] MEDS ORDERED: Pneumococcal 23-Valent Vaccine IM ONE (12:00)
[2018-04-25] MEDS ORDERED: Influenza Vaccine 60 mcg/0.5 mL SYR (4YR UP) IM ONE (12:00)
[2018-04-26] MEDS ORDERED: Pneumococcal 23-Valent Vaccine IM ONE (10:00)
[2018-04-26] MEDS ORDERED: Influenza Vaccine 60 mcg/0.5 mL SYR (4YR UP) IM ONE (12:00)
== END 2018-04-25 13:22 | disposition home or self-care (01) ==
LOC: C.ER 08:22 → C.9E 15:32 → C.5S 16:57
PROVIDERS: ADMIT Hospitalist; ATTEND Hospitalist
DX: K52.9 Noninfective gastroenteritis and colitis, unspecified (principal); D72.825 Bandemia; K76.0 Fatty (change of) liver, not elsewhere classified
CPT/HCPCS: 36415; 71046; 74176; 80053; 80074; 81001; 83605; 83735; 84100; 85025; 86703; 87040; 87086; 87177; 87209; 87230; 87389; 87804; 89055; 90471; 90674; 90732; 96360; 96365; 96372; 96374; 99285; G0378; J0500; J0696; J2405; J7030